=== PATIENT | male | born 1945 | race Caucasian/White ===

== ENCOUNTER 2016-07-14 10:50 | Inpatient (IN) | payer OTHER, MEDICAID ==
[~2016-07-14] VITALS: Ht 177.8 cm; Wt 88.0 kg
[2016-07-14] VITALS (11 sets, daily range): BP systolic 123–135; BP diastolic 56–92; PULSE 74–154; RESP 16–36; TEMP 96.4–98.4; O2SAT 89–95
--- NOTE | 2016-07-14 10:50 | NUR ---
Placed in room 5 . Placed on security monitor, blood pressure machine and pulse oximeter. To gown for exam. Side rails up.
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
[2016-07-14] MEDS ORDERED: NS 500 ML IV SCH (10:57)
[2016-07-14] MEDS ORDERED: methylPREDNISolone SOD SUCC 500 MG/VIAL (Solu-MEDROL) IV ONE (11:00)
[2016-07-14] MEDS ORDERED: cefTRIAXone 1 GM in D5W 50 ML IV ONE (11:00)
[2016-07-14] MEDS ORDERED: IPRATROPIUM/ALBUTEROL SULFATE 3 ML AMPUL.NEB INH ONE (11:00)
--- NOTE | 2016-07-14 11:00 | NUR ---
Per Dr. Hernandez we will try to control rate with aggresive hydration and relaxation techniques with pt as first line Tx.
[2016-07-14] MEDS ORDERED: IPRATROPIUM/ALBUTEROL SULFATE 3 ML AMPUL.NEB ONE (11:02)
[2016-07-14] MEDS ORDERED: cefTRIAXone 1 GM VIAL ONE (11:14)
[2016-07-14] MEDS ORDERED: KETOROLAC TROMETHAMINE 15 MG VIAL IVP ONE (11:15)
[2016-07-14] MEDS ORDERED: AMIODARONE HCL 150 MG/3ML VIAL ONE (11:19)
--- NOTE | 2016-07-14 11:20 | NUR ---
Discussed with Dr. Hernandez that pt is still very tachycardic 155 wide complex. Amiodaraone 150mg IVP over 10 min ordered.
[2016-07-14 11:21] LABS: ANION GAP 15 (5-15); CALCIUM 11.2 mg/dL (8.4-11.0); CHLORIDE 101 mmol/L (98-107); CREATININE 1.54 mg/dL (0.55-1.30); GLUCOSE 163 mg/dL (70-99); HEMATOCRIT 42.6 % (36-54); HEMOGLOBIN 14.1 g/dL (14.0-18.0); MEAN CORPUSCULAR HEMOGLOBIN 29 pg (27-31); MEAN CORPUSCULAR HGB CONC 33 % (32-36); MEAN CORPUSCULAR VOLUME 87 fL (79.0-98.0); PLATELET COUNT (AUTO) 327 K/uL (130-430); POTASSIUM 3.4 mmol/L (3.5-5.1); RED CELL DISTRIBUTION WIDTH 13.3 % (9.0-15.0); SODIUM SERUM 136 mmol/L (136-145); UREA NITROGEN, BLOOD 21 mg/dL (8-21); WHITE BLOOD COUNT (AUTO) 17.8 K/uL (4.8-10.8)
[2016-07-14 11:26] LABS: ALANINE AMINOTRANSFERASE 31 U/L (12-78); ALBUMIN 2.6 g/dL (3.4-4.8); ASPARTATE AMINOTRANSFERASE 68 U/L (10-37); TOTAL BILIRUBIN 0.7 mg/dL (0.0-1.0); TOTAL PROTEIN, SERUM 7.1 g/dL (6.4-8.3)
[2016-07-14] MEDS ORDERED: methylPREDNISolone SOD SUCC/PF 62.5 MG/ML VIAL IVP ONE (11:30)
[2016-07-14] MEDS ORDERED: AMIODARONE HCL 150 MG in D5W 100 ML IV ONE (11:30)
--- NOTE | 2016-07-14 11:42 | NUR ---
Patient states that he feels less SOB at this time. Still complaining of right posterior chest pain.
[2016-07-14 11:49] LABS: ATYPICAL LYMPHOCYTES % 0 % (0-0); BAND % (MANUAL) 0 % (0-6); BASOPHILS % (MANUAL) 0 % (0-2); EOSINOPHILS % (MANUAL) 0 % (0-7); LYMPHOCYTES % (MANUAL) 16 % (20-46); MONOCYTES % (MANUAL) 14 % (0-11)
--- NOTE | 2016-07-14 12:05 | NUR ---
received report from charge nurse sincere.
--- NOTE | 2016-07-14 12:06 | NUR ---
pt is awake,alert,mild resp distress. heart rate decreased to 94.
--- NOTE | 2016-07-14 12:11 | NUR ---
transported to CT scan via [facility]
--- NOTE | 2016-07-14 12:26 | NUR ---
returned back from ct scan.
[2016-07-14] MEDS ORDERED: POTA8TAB4 PO (12:34)
[2016-07-14] MEDS ORDERED: INSU100V8 SUBCUT ×2 (12:34)
[2016-07-14] MEDS ORDERED: HYDR25TA4 PO (12:34)
[2016-07-14] MEDS ORDERED: PLA200 PO (12:34)
[2016-07-14] MEDS ORDERED: ESCI20TA PO (12:34)
[2016-07-14] MEDS ORDERED: OMEP20CA10 PO (12:34)
[2016-07-14] MEDS ORDERED: LORA-258 PO (12:34)
[2016-07-14] MEDS ORDERED: LINA5TAB2 PO (12:34)
[2016-07-14] MEDS ORDERED: DIPH25CA83 PO (12:34)
[2016-07-14] MEDS ORDERED: VALS160T2 PO (12:34)
[2016-07-14] MEDS ORDERED: ATEN100T44 PO (12:34)
[2016-07-14] MEDS ORDERED: ASPI-1063 PO (12:34)
[2016-07-14] MEDS ORDERED: FOLI-43 PO (12:34)
[2016-07-14] MEDS ORDERED: ADAL40PE SQ (12:34)
--- NOTE | 2016-07-14 12:34 | NUR ---
Medication reconciliation completed with information provided by patient. Any prior medication reconciliation on file was reviewed and corrected.
[2016-07-14] MEDS ORDERED: VANCOMYCIN HCL 1,000 MG in NS 250 ML IV ONE (13:00)
[2016-07-14] MEDS ORDERED: LIDOCAINE 1%, 20 ML MDV 20 ML ONE (13:07)
[2016-07-14] MEDS ORDERED: LIDOCAINE 1% 10 MG/ML, 20 ML MDV INJ ONE (13:15)
--- NOTE | 2016-07-14 13:36 | NUR ---
Patient is at rest in bed. No distress at this time.
--- NOTE | 2016-07-14 13:54 | NUR ---
Patient given upper body chloxhexadine bath. Right chest scrubbed in luis a-operative manner.
[2016-07-14] MEDS ORDERED: ACETAMINOPHEN 325 MG TABLET PO PRN (14:00)
--- NOTE | 2016-07-14 14:02 | NUR ---
7fr chest tube placed to right chest 2nd intercostal space by Dr. Hernandez. Foam tape placed to help secure the flutter valve.
--- NOTE | 2016-07-14 14:12 | NUR ---
Chest tube to right chest. Flutter valve does not appear to be fluttering. Dr. Hernandez aware, awaiting chest X-ray.
[2016-07-14] MEDS ORDERED: POTASSIUM CHLORIDE 20 MEQ TAB.PRT.SR PO ONE (14:15)
[2016-07-14] MEDS ORDERED: NITROGLYCERIN 0.4 MG TAB.SUBL SL PRN (14:15)
[2016-07-14] MEDS ORDERED: VANCOMYCIN HCL 1000 MG/VIAL IV ONE (14:15)
--- NOTE | 2016-07-14 14:35 | NUR ---
Dr. Hernandez at bedside to replace chest tube due to non-adherance to chest wall and flutter valve not working.
--- NOTE | 2016-07-14 14:49 | NUR ---
There is a small amount of blood in the suction tubing. Dr. Hernandez notified. continue to monitor.
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
[2016-07-14] MEDS ORDERED: ETOMIDATE 20 MG/ 10 ML VIAL (AMIDATE) ONE (16:00)
[2016-07-14] MEDS ORDERED: PANCURONIUM BROMIDE 10 MG/10 ML VIAL (PAVULON) IV ONE (16:00)
[2016-07-14] MEDS: NACL 0.9% 1,000 ML IV SCH (16:30)
[2016-07-14] MEDS ORDERED: methylPREDNISolone SOD SUCC 40 MG/ML VIAL IVP ONE (16:30)
[2016-07-14] MEDS: MORPHINE 2 MG/ML INJ. SYRINGE IVP PRN ×2 (16:45→21:26)
[2016-07-14 16:49] LABS: ABG TOTAL HEMOGLOBIN 13.4 G/dL (12.0-18.0); BLOOD GAS COHb% 1.3 % (0.5-1.5); BLOOD GAS HHB 5.5 % (0.0-6.0); BLOOD GAS PH 7.424 (7.350-7.450)
--- NOTE | 2016-07-14 17:15 | NUR ---
Called Dr. Goldberg with a consult, spoke exchange. Dr Goldberg aware
--- NOTE | 2016-07-14 17:18 | NUR ---
Spoke with Dr. Cerda regarding ABG results.
--- NOTE | 2016-07-14 17:27 | NUR ---
Spoke with Dr. Cerda regarding ABG results.
[2016-07-14] MEDS: IPRATROPIUM/ALBUTEROL SULFATE 3 ML AMPUL.NEB INH SCH (18:00)
--- NOTE | 2016-07-14 18:00 | NUR ---
Pt states morphine was effective. SR with first degree block. O22L via nasal cannula. 2 units NovoLog given. Will continue to monitor.
[2016-07-14] MEDS: INSULIN ASPART 100 UNITS/ML, 10 ML VIAL (NovoLOG) SUBCUT PRN ×2 (18:17→21:48)
[2016-07-14] MEDS: PIPERACILLIN/TAZO 2.25G/DEX-IS 50 ML IV SCH (18:19)
[2016-07-14] MEDS: HYDROXYCHLOROQUINE SULFATE 200 MG TABLET PO SCH (21:24)
[2016-07-14] MEDS: methylPREDNISolone SOD SUCC 40 MG/ML VIAL IVP SCH (21:24)
[2016-07-14] MEDS: LACTOBACILLUS RHAMNOSUS GG 1 CAP CAPSULE PO SCH (21:27)
--- NOTE | 2016-07-14 21:36 | NUR ---
Pain C/o right rib area & back pain rated 9/10 described as throbbing pain. Morphine sulfate given as ordered.
--- NOTE | 2016-07-14 21:36 | NUR ---
Medication Due medications given as ordered. Tolerated po meds well.
[2016-07-14] MEDS: INSULIN GLULISINE SUBCUT SCH (21:47)
--- NOTE | 2016-07-14 21:53 | NUR ---
Blood sugar fingerstick checked = 237 mg/dL. No s/s of hypo/hyperglycemia. Scheduled 18 unit Apidra & 4 units Novolog insulin given for coverage.
[2016-07-15] VITALS (38 sets, daily range): BP systolic 73–167; BP diastolic 35–92; PULSE 50–189; RESP 12–60; TEMP 96.4–97.4; O2SAT 67–100; Ht 177.8 cm; Wt 88.0 kg
[2016-07-15] MEDS: PIPERACILLIN/TAZO 2.25G/DEX-IS 50 ML IV SCH ×4 (00:15→17:24)
--- NOTE | 2016-07-15 00:23 | NUR ---
Rounds Sleeping quietly, easily aroused. No c/o pain or discomfort. No shortness of breath. Call light within reach.
[2016-07-15 01:50] LABS: BASOPHILS # (AUTO) 0.1 K/uL (0.0-0.2); BASOPHILS % (AUTO) 1.3 % (0.0-2.0); HEMATOCRIT 37.4 % (36-54); HEMOGLOBIN 12.4 g/dL (14.0-18.0); LYMPHOCYTES # (AUTO) 0.3 K/uL (1.0-5.5); LYMPHOCYTES % (AUTO) 3.1 % (20.5-51.5); MEAN CORPUSCULAR HEMOGLOBIN 29 pg (27-31); MEAN CORPUSCULAR HGB CONC 33 % (32-36); MEAN CORPUSCULAR VOLUME 87 fL (79.0-98.0); MONOCYTES # (AUTO) 0.7 K/uL (0.0-1.0); MONOCYTES % (AUTO) 6.9 % (1.7-9.3); NEUTROPHILS # (AUTO) 9.7 K/uL (1.8-7.7); NEUTROPHILS % (AUTO) 88.7 % (40.0-70.0); PLATELET COUNT (AUTO) 197 K/uL (130-430); RED CELL DISTRIBUTION WIDTH 13.3 % (9.0-15.0); WHITE BLOOD COUNT (AUTO) 10.8 K/uL (4.8-10.8)
[2016-07-15 02:00] LABS: ANION GAP 8 (5-15); CALCIUM 10.3 mg/dL (8.4-11.0); CHLORIDE 105 mmol/L (98-107); CREATININE 1.45 mg/dL (0.55-1.30); GLUCOSE 114 mg/dL (70-99); POTASSIUM 4.2 mmol/L (3.5-5.1); SODIUM SERUM 137 mmol/L (136-145); UREA NITROGEN, BLOOD 24 mg/dL (8-21)
[2016-07-15] MEDS: methylPREDNISolone SOD SUCC 40 MG/ML VIAL IVP SCH ×3 (04:57→21:44)
[2016-07-15] MEDS ORDERED: DILTIAZEM HCL 25 MG/5 ML VIAL IVP ONE (05:00)
[2016-07-15] MEDS ORDERED: ETOMIDATE 20 MG/ 10 ML VIAL (AMIDATE) IVP ONE (05:00)
[2016-07-15] MEDS ORDERED: NACL 0.9% 1,000 ML IV ONE (05:00)
[2016-07-15] MEDS ORDERED: PANCURONIUM BROMIDE 10 MG/10 ML VIAL (PAVULON) IV ONE (05:00)
--- NOTE | 2016-07-15 05:00 | NUR ---
RESPIRATORY DISTRESS] has difficulty breathing, restless in bed. O2 sat mid 70's to 80's, hr 180's. RT called for breathing treatment.
[2016-07-15] MEDS ORDERED: DILTIAZEM HCL 25 MG/5 ML VIAL ONE (05:10)
--- NOTE | 2016-07-15 05:10 | NUR ---
md Dr. Velázquez in tang with orders given in preparation for intubation
--- NOTE | 2016-07-15 05:19 | NUR ---
intubation Dr. Velázquez intubated patient with 7.5 ett, 23 cm lipline. Patient on ambu bag.
[2016-07-15] MEDS ORDERED: PROPOFOL DRIP 100 ML IV ONE (05:31)
[2016-07-15] MEDS ORDERED: DILTIAZEM HCL 125 MG/25 ML VIAL IV ONE (05:44)
--- NOTE | 2016-07-15 05:45 | NUR ---
mechanical vent Intubated. On mechanical vent with settings TV 550, AC 18, Fio2 100 %.
[2016-07-15 05:59] LABS: ANION GAP 18 (5-15); CALCIUM 9.8 mg/dL (8.4-11.0); CHLORIDE 105 mmol/L (98-107); CREATININE 1.74 mg/dL (0.55-1.30); GLUCOSE 192 mg/dL (70-99); POTASSIUM 4.1 mmol/L (3.5-5.1); SODIUM SERUM 140 mmol/L (136-145); UREA NITROGEN, BLOOD 24 mg/dL (8-21)
[2016-07-15 06:06] LABS: INR 1.2 (0.80-1.20); PROTHROMBIN TIME 12.5 SECS (9.5-12.5)
[2016-07-15 06:12] LABS: BLOOD GAS PH 7.142 (7.350-7.450)
[2016-07-15 06:13] LABS: ABG TOTAL HEMOGLOBIN 13.6 G/dL (12.0-18.0); BLOOD GAS BASE EXCESS -14.2 mmol/L (-3.0-3.0)
[2016-07-15 06:14] LABS: BLOOD GAS COHb% 0.7 % (0.5-1.5); BLOOD GAS HHB 14.7 % (0.0-6.0); BLOOD O2Hb% 84.2 % (94.0-97.0)
[2016-07-15] MEDS ORDERED: DILTIAZEM HCL 125 MG in D5W 100 ML IV SCH ×2 (06:15→18:00)
[2016-07-15 06:28] LABS: ALANINE AMINOTRANSFERASE 26 U/L (12-78); ALBUMIN 2.1 g/dL (3.4-4.8); ASPARTATE AMINOTRANSFERASE 59 U/L (10-37); TOTAL BILIRUBIN 0.6 mg/dL (0.0-1.0); TOTAL PROTEIN, SERUM 5.9 g/dL (6.4-8.3)
[2016-07-15] MEDS ORDERED: SODIUM BICARBONATE 8.4% JECT 50 MEQ/50 ML SYRINGE IVP ONE (06:30)
--- NOTE | 2016-07-15 06:30 | NUR ---
Restraints Bilateral soft wrist restraints initiated as ordered by Dr. Velázquez for safety. Patient restless in bed.
[2016-07-15] MEDS ORDERED: SODIUM BICARBONATE 8.4% JECT 50 MEQ/50 ML SYRINGE ONE (06:37)
[2016-07-15] MEDS: INSULIN ASPART 100 UNITS/ML, 10 ML VIAL (NovoLOG) SUBCUT PRN ×4 (07:16→21:36)
--- NOTE | 2016-07-15 07:30 | NUR ---
Closing note In bed with periods of restlessness. Intubated on mechanical vent, tolerating current settings. Bilateral soft wrist restraints in place. Cardizem drip infusing to left hand @10 mg/hr, propofol infusing at 30 mcg/kg/min. Vitals bp 68/44, hr 73 bpm. Fall precautions in place. Will give report to oncoming shift RN.
--- NOTE | 2016-07-15 08:00 | NUR ---
NURSE: PT RECEIVED AT 0720, ON VENT, AC22, VT500, FIO2 100%, ETT SIZE 7.5 LEVEL24, ON CARDIZEM DRIP AT 10 MG/HR, SEDATED WITH PROPOFOL AT 30 MCG/KG/MIN, PT IS STILL RESTLESS, ON BILATERAL SOFT WRIST RESTRAINTS, ON NSR IN THE 80'S, BP IN THE LOW 90'S, PULSES ARE WEAK, PT LOOKS PALE, TO CONTINUE TO MONITOR CLOSELY.
[2016-07-15 08:36] LABS: ABG TOTAL HEMOGLOBIN 12.5 G/dL (12.0-18.0); BLOOD GAS BASE EXCESS -3.6 mmol/L (-3.0-3.0); BLOOD GAS HHB 1.5 % (0.0-6.0); BLOOD GAS PH 7.359 (7.350-7.450)
[2016-07-15] MEDS: NOREPINEPHRINE BITARTRATE 8 MG in D5W 242 ML IV PRN (08:39)
[2016-07-15] MEDS: CITALOPRAM HYDROBROMIDE 20 MG TABLET PO SCH (08:47)
[2016-07-15] MEDS: LACTOBACILLUS RHAMNOSUS GG 1 CAP CAPSULE PO SCH ×2 (08:48→21:00)
[2016-07-15] MEDS: VALSARTAN 160 MG TABLET (DIOVAN) PO SCH (08:48)
[2016-07-15] MEDS: ASPIRIN 81 MG TABLET(ECOTRIN) PO SCH (08:49)
[2016-07-15] MEDS: FOLIC ACID 1 MG TABLET PO SCH (08:49)
[2016-07-15] MEDS: OMEPRAZOLE 20 MG CAPSULE.DR (PriLOSEC) PO SCH (08:49)
[2016-07-15] MEDS: HYDROXYCHLOROQUINE SULFATE 200 MG TABLET PO SCH ×2 (08:49→21:00)
[2016-07-15] MEDS: ATENOLOL 50 MG TABLET (TENORMIN) PO SCH (08:50)
--- NOTE | 2016-07-15 09:18 | NUR ---
Nutrition Update Familia Scale 16 noted. Pt admitted for sepsis, possible pneumonia, pneumothorax, elevated TR. Diet: CCHO, soft BMI: 28.0 kg/m2 RD to follow per nutrition care standards.
--- NOTE | 2016-07-15 09:35 | NUR ---
NURSE: PT'S BP DROPPED TO THE 70'S AT AROUND 0800, TARAOPED TANYA TRUJILLO, CALLED DR WALKER, TOLD HER ABOUT THE PT SITUATION, DHE GAVE AND ORDER FOR NS 5OO ML BOLUS IV, SHE IF IT DOES NOT WORK TO STAT PT ON LEVOPHED DRIP, INSERT HARDIN. LEVOPHED HAS BEEN STARTED AROUND 0900 AT 10 MCG, BP WAS STILL LOW, HARDIN INSERTED WITHOUT DIFFICULTY, ABG WAS DONE, FIO2 WAS DROPPED TO 80% BY THE R.T. TO CONTINUE TO MONITOR CLOSELY.
[2016-07-15] MEDS: PROPOFOL DRIP 100 ML IV PRN ×3 (10:33→21:43)
--- NOTE | 2016-07-15 12:00 | NUR ---
NURSE: DR TRIMBLE AND DR WALKER CAME TO SEE THE PT.
[2016-07-15] MEDS ORDERED: ALBUMIN HUMAN 5% 500 ML IV ONE (13:00)
--- NOTE | 2016-07-15 13:30 | NUR ---
NURSE: VENT SETTINGS HAS BEEN CHANGED TO AC16, VT 550, FIO2 50%, P4 PER DR DAVILA.
[2016-07-15] MEDS: NACL 0.9% 1,000 ML IV SCH ×2 (15:50→15:52)
--- NOTE | 2016-07-15 16:00 | NUR ---
NURSE: DR PRESSLEY WAS HERE TO SEE THE PT, DR WRIGHT WAS ALSO HERE, HE SPOKE WITH THE PT'S DAUGHTER AT THE BEDSIDE.
[2016-07-15] MEDS: IPRATROPIUM/ALBUTEROL SULFATE 3 ML AMPUL.NEB INH SCH ×3 (18:17→18:20)
[2016-07-15] MEDS: INSULIN GLULISINE SUBCUT SCH (21:35)
--- NOTE | 2016-07-15 22:08 | NUR ---
BS/MEDS BS 177, 2UNITS NOVOLOG PER SLIDING SCALE GIVEN AND SCHED APIDRA GIVEN, NO HYPO/HYPERGLYCEMIA. PROPOFOL CONTINUED AT 35MCG/KG/MIN. PO MEDS HELD, DR. WALKER AWARE THAT PT HAS NO NGT/OGT, STATES THAT IT IS NOT NEEDED AT THIS TIME. DUE IV MED GIVEN, PT TOLERATING WELL. FAMILY QUESTIONS ANSWERED. POC DISCUSSED, FAMILY STATES UNDERSTANDING. CALL LIGHT W/IN REACH, SAFETY PRECAUTIONS IN PLACE, WILL CONTINUE TO MONITOR.
[2016-07-16] VITALS (32 sets, daily range): BP systolic 88–164; BP diastolic 42–97; PULSE 76–174; RESP 10–54; TEMP 96.5–98; O2SAT 75–100
--- NOTE | 2016-07-16 00:30 | NUR ---
ABX DUE ABX GIVEN, PT TOLERATING WELL, CALL LIGHT W/IN REACH, SAFETY PRECAUTIONS IN PLACE, WILL CONTINUE TO MONITOR.
[2016-07-16] MEDS: PIPERACILLIN/TAZO 2.25G/DEX-IS 50 ML IV SCH ×4 (00:40→18:00)
[2016-07-16] MEDS ORDERED: NOREPINEPHRINE 4 MG/4 ML VIAL IV ONE ×2 (01:33→01:41)
--- NOTE | 2016-07-16 02:00 | NUR ---
LEVOPHED LEVOPHED TITRATED DOWN TO 4MCG/MIN, PT TOLERATING WELL, WILL REASSESS. CALL LIGHT W/IN REACH, SAFETY PRECAUTIONS IN PLACE, WILL CONTINUE TO MONITOR.
[2016-07-16] MEDS: NOREPINEPHRINE BITARTRATE 8 MG in D5W 242 ML IV PRN (02:10)
[2016-07-16] MEDS: PROPOFOL DRIP 100 ML IV PRN ×5 (03:19→15:42)
[2016-07-16] MEDS: methylPREDNISolone SOD SUCC 40 MG/ML VIAL IVP SCH ×2 (06:12→20:54)
[2016-07-16] MEDS: NACL 0.9% 1,000 ML IV SCH (06:13)
--- NOTE | 2016-07-16 06:28 | NUR ---
BS/MED/ ABX BS 135, NO COVERAGE PER SLIDING SCALE GIVEN, NO HYPO/HYPERGLYCEMIA. DUE MED AND ABX GIVEN, PT TOLERATING WELL. CALL LIGHT W/IN REACH, SAFETY PRECAUTIONS IN PLACE, WILL CONTINUE TO MONITOR.
[2016-07-16 06:31] LABS: ANION GAP 11 (5-15); CALCIUM 9.6 mg/dL (8.4-11.0); CHLORIDE 113 mmol/L (98-107); CREATININE 1.11 mg/dL (0.55-1.30); GLUCOSE 145 mg/dL (70-99); POTASSIUM 3.7 mmol/L (3.5-5.1); SODIUM SERUM 147 mmol/L (136-145); UREA NITROGEN, BLOOD 29 mg/dL (8-21)
[2016-07-16 06:32] LABS: BASOPHILS # (AUTO) 0.3 K/uL (0.0-0.2); BASOPHILS % (AUTO) 1.9 % (0.0-2.0); HEMATOCRIT 34.5 % (36-54); HEMOGLOBIN 11.5 g/dL (14.0-18.0); LYMPHOCYTES # (AUTO) 0.4 K/uL (1.0-5.5); LYMPHOCYTES % (AUTO) 2.7 % (20.5-51.5); MEAN CORPUSCULAR HEMOGLOBIN 29 pg (27-31); MEAN CORPUSCULAR HGB CONC 33 % (32-36); MEAN CORPUSCULAR VOLUME 88 fL (79.0-98.0); MONOCYTES # (AUTO) 1.2 K/uL (0.0-1.0); MONOCYTES % (AUTO) 8.7 % (1.7-9.3); NEUTROPHILS # (AUTO) 11.6 K/uL (1.8-7.7); NEUTROPHILS % (AUTO) 86.7 % (40.0-70.0); PLATELET COUNT (AUTO) 182 K/uL (130-430); RED BLOOD CELL COUNT(AUTO) 3.94 MIL/uL (4.2-6.2); RED CELL DISTRIBUTION WIDTH 13.7 % (9.0-15.0); WHITE BLOOD COUNT (AUTO) 13.6 K/uL (4.8-10.8)
--- NOTE | 2016-07-16 07:23 | NUR ---
CLOSING ALL NEEDS MET. ENDORSED CARE TO DAY NURSE YUE VU, REPORT GIVEN AT BEDSIDE.
[2016-07-16 07:42] LABS: ABG TOTAL HEMOGLOBIN 12.7 G/dL (12.0-18.0); BLOOD GAS BASE EXCESS -2.3 mmol/L (-3.0-3.0); BLOOD GAS COHb% 0.3 % (0.5-1.5); BLOOD GAS HHB 3.1 % (0.0-6.0); BLOOD GAS PH 7.406 (7.350-7.450); BLOOD O2Hb% 96.4 % (94.0-97.0)
--- NOTE | 2016-07-16 07:50 | NUR ---
NOTES PT IN BED AWAKE, RESTLESS AND KEEPS MOVING. DIPRIVAN TITRATED AT 45MCG/KG. ON ET TUBE 25 CM LIP LINE, VENT SETTINGS AC 16, TV 500, FIO2 40%, peep 4. ON LEVOPHED AT 4MCG. NS AT 80CC.HR. HARDIN CATH DRAINING YELLOW URINE. HAS THORAVAX ON THE RT CHEST WITH OLD BLOOD NOTED. WILL MONITOR.
--- NOTE | 2016-07-16 08:10 | NUR ---
RESTRAINTS BILATERAL RESTRAINTS REMOVED.
--- NOTE | 2016-07-16 08:43 | NUR ---
PO MEDS PO MEDS HOLD. NO AVAILABLE ACCES TO GIVE MEDS AT THIS TIME.
[2016-07-16] MEDS: LACTOBACILLUS RHAMNOSUS GG 1 CAP CAPSULE PO SCH ×2 (09:00→20:54)
[2016-07-16] MEDS: HYDROXYCHLOROQUINE SULFATE 200 MG TABLET PO SCH ×2 (09:00→20:55)
[2016-07-16] MEDS: VALSARTAN 160 MG TABLET (DIOVAN) PO SCH (09:00)
[2016-07-16] MEDS: FOLIC ACID 1 MG TABLET PO SCH (09:00)
[2016-07-16] MEDS: OMEPRAZOLE 20 MG CAPSULE.DR (PriLOSEC) PO SCH (09:00)
[2016-07-16] MEDS: CITALOPRAM HYDROBROMIDE 20 MG TABLET PO SCH (09:00)
[2016-07-16] MEDS: ASPIRIN 81 MG TABLET(ECOTRIN) PO SCH (09:00)
[2016-07-16] MEDS: ATENOLOL 50 MG TABLET (TENORMIN) PO SCH (09:00)
[2016-07-16] MEDS: IPRATROPIUM/ALBUTEROL SULFATE 3 ML AMPUL.NEB INH SCH ×4 (09:27→19:59)
--- NOTE | 2016-07-16 10:00 | NUR ---
NOTES RESPONSE TO LIGHT GLABELLAR TAP. FAMILY AT BEDSIDE. TURNED AND REPOSITIONED. PER FAMILY PT FACE IS MORE PUFFY.
--- NOTE | 2016-07-16 10:30 | NUR ---
ROUNDS SEEN BY DR. DAVILA AT BEDSIDE. PER MD THE THORA VENT IS NOT WORKING. DR. PRESSLEY PAGED AND SPOKE TO DR. DAVILA FOR CHEST TUBE PLACEMENT.
--- NOTE | 2016-07-16 12:00 | NUR ---
BLOOD SUGAR 161. NO DISTRESS NOTED. WILL MONITOR.
--- NOTE | 2016-07-16 14:00 | NUR ---
chest tube DR. PRESSLEY HERE AND TALK TO THE FAMILY AT BEDSIDE. FAMILY REFUSED TO PUT CHEST TUBE. PT STATED (DAUGHTER) THAT THEY WANT HIM TO BE COMFORTABLE AND JUST PAIN FREE. FAMILY ALSO WANTS PT TO BE DNR. DR. DENISE ALEXANDER.
--- NOTE | 2016-07-16 14:00 | NUR ---
Dr. Goldberg on the unit evaluating the patient. He discussed with family/daughter regarding patients condition. Family agreed to make the patient a DNR. Dr. Jesenia roman. Waiting for orders.
[2016-07-16] MEDS: 0.45% NACL 1,000 ML IV SCH (14:56)
--- NOTE | 2016-07-16 15:15 | NUR ---
MD CALLED DR. WALKER CALLED BACK AND TALK TO THE FAMILY. ORDERED PT TO BE DNR AND CALLED DR. DAVILA FOR ORDER FOR TERMINALLY EXTUBATION.
[2016-07-16] MEDS ORDERED: MORPHINE PCA 50 mg/50 mL NS 50 ML IV PRN (16:00)
[2016-07-16] MEDS ORDERED: MORPHINE I.V. DRIP 100 ML IV PRN (16:00)
--- NOTE | 2016-07-16 16:30 | NUR ---
LEVOPHED AND DIPRIVAN DISCONTINUED AT THIS TIME.
--- NOTE | 2016-07-16 16:35 | NUR ---
MORPHINE DRIP MORPHINE DRIP STARTED AT THIS TIME.
[2016-07-16] MEDS: MORPHINE 2 MG/ML INJ. SYRINGE IVP PRN ×2 (16:48→20:33)
--- NOTE | 2016-07-16 16:52 | NUR ---
Patient extubated. RT at bedside. 2 RN's and house detective. Patient placed on 2 LPM O2 via NC. HR 180's. RR 30-40's. Dr. Ba made aware.
--- NOTE | 2016-07-16 17:00 | NUR ---
FAMILY REFUSED TO CHECK BLOOD SUGAR AND IV ANTIBIOTICS.
[2016-07-16] MEDS ORDERED: LORazepam 2 MG/ML VIAL IVP PRN ×2 (17:15→18:30)
[2016-07-16] MEDS ORDERED: LORazepam 2 MG/ML VIAL ONE ×3 (17:15→19:50)
--- NOTE | 2016-07-16 17:15 | NUR ---
PT IS RESTLESS AND AGITATED. BOLIVAR VU SPOKE TO DR. WALKER AND ORDERED ATIVAN.
--- NOTE | 2016-07-16 17:51 | NUR ---
1652 PT TERMINALLY EXTUBATED AND PLACED ON 3L NASAL CANNULA. FAMILY AT BEDSIDE. Addendum: 07/16/16 at 1753 by Benita Payne RT Amended: Links added.
--- NOTE | 2016-07-16 18:30 | NUR ---
Spoke with Dr. Ba. Updated on patients current condition including HR 180's. Reccommended cardizem and amiodarone. New order given to give Ativan every 1 hour. Will follow through.
--- NOTE | 2016-07-16 19:00 | NUR ---
NOTES PT IN BED STILL RESTLESS AND AGITATED. MORPHINE DRIP AT 1MG INFUSING WELL. ATIVAN GIVEN ORDERED.
--- NOTE | 2016-07-16 19:00 | NUR ---
ATIVAN ATIVAN GIVEN 1MG AT THIS TIME. NEW ORDER FOR ATIVAN 1MG Q1 HOUR NOT FOUND IN THE [facility] YET.
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
--- NOTE | 2016-07-16 19:30 | NUR ---
MORPHINE DRIP MORPHINE DRIP INCREASED 0.5MG/HR ORDERED. WILL CONTINUE TO MONITOR.
[2016-07-16] MEDS: D5W IV PRN (20:04)
[2016-07-16] MEDS: LORAZEPAM IV PRN (20:04)
--- NOTE | 2016-07-16 20:33 | NUR ---
ATIVAN DRIP, MORPHINE ATIVAN DRIP INITIATED, PT STILL AGITATED AND GRIMACING, MORPHINE GIVEN, PT TOLERATING WELL, WILL REASSESS SHORTLY. WILL CONTINUE TO MONITOR.
--- NOTE | 2016-07-16 20:42 | NUR ---
MORPHINE DRIP MORPHINE DRIP INCREASED 0.5MG/HR ORDERED. PT STILL MOANING AND YELLING OUT. WILL CONTINUE TO MONITOR.
--- NOTE | 2016-07-16 20:56 | NUR ---
SCHED MEDS REFUSED FAMILY REFUSED SCHED MEDS. WILL CONTINUE TO MONITOR.
[2016-07-17] VITALS (14 sets, daily range): BP systolic 87–107; BP diastolic 47–61; PULSE 80–113; RESP 6–17; TEMP 96–97; O2SAT 88–95
--- NOTE | 2016-07-17 | NUR ---
RESTRAINTS DC'D NO AGITATION OR REMOVING LINES OR DISRUPTING CARE. PT CALM AND RESTING. RESTRAINTS REMOVED. CALL LIGHT W/IN REACH, SAFETY PRECAUTIONS IN PLACE, WILL CONTINUE TO MONITOR.
[2016-07-17] MEDS ORDERED: LORazepam 2 MG/ML VIAL ONE (03:16)
[2016-07-17] MEDS: LORAZEPAM IV PRN ×2 (04:01→15:18)
[2016-07-17] MEDS: D5W IV PRN ×2 (04:01→15:18)
--- NOTE | 2016-07-17 04:06 | NUR ---
ATIVAN DRIP CONTINUING ATIVAN DRIP, PT TOLERATING WELL, WILL REASSESS SHORTLY. WILL CONTINUE TO MONITOR.
[2016-07-17] MEDS: PIPERACILLIN/TAZO 2.25G/DEX-IS 50 ML IV SCH ×3 (06:00→12:00)
[2016-07-17] MEDS: IPRATROPIUM/ALBUTEROL SULFATE 3 ML AMPUL.NEB INH SCH ×4 (06:00→19:10)
[2016-07-17] MEDS: MORPHINE PCA 50 mg/50 mL NS 50 ML IV PRN ×2 (06:36→16:25)
--- NOTE | 2016-07-17 06:36 | NUR ---
MORPHINE DRIP MORPHINE DRIP CONTINUED, PT TOLERATING WELL, WILL REASSESS SHORTLY. CALL LIGHT W/IN REACH, SAFETY PRECAUTIONS IN PLACE, WILL CONTINUE TO MONITOR.
[2016-07-17 07:03] LABS: BASOPHILS % (AUTO) 0.1 % (0.0-2.0); HEMATOCRIT 35.1 % (36-54); HEMOGLOBIN 11.7 g/dL (14.0-18.0); LYMPHOCYTES # (AUTO) 0.3 K/uL (1.0-5.5); LYMPHOCYTES % (AUTO) 2.6 % (20.5-51.5); MEAN CORPUSCULAR HEMOGLOBIN 30 pg (27-31); MEAN CORPUSCULAR HGB CONC 33 % (32-36); MEAN CORPUSCULAR VOLUME 89 fL (79.0-98.0); MONOCYTES % (AUTO) 8.6 % (1.7-9.3); NEUTROPHILS # (AUTO) 10.4 K/uL (1.8-7.7); NEUTROPHILS % (AUTO) 88.7 % (40.0-70.0); PLATELET COUNT (AUTO) 125 K/uL (130-430); RED BLOOD CELL COUNT(AUTO) 3.95 MIL/uL (4.2-6.2); RED CELL DISTRIBUTION WIDTH 13.8 % (9.0-15.0); WHITE BLOOD COUNT (AUTO) 11.7 K/uL (4.8-10.8)
--- NOTE | 2016-07-17 07:25 | NUR ---
CLOSING ALL NEEDS MET. ENDORSED CARE AT BEDSIDE TO NURSE LANIE VU.
--- NOTE | 2016-07-17 07:25 | NUR ---
OPENING NOTE RECEIVED REPORT FROM NIGHT NURSE, PATIENT IS RESTING COMFORTABLY WITH NO NOTED DISTRESS, DISCOMFORT OR SOB. PATIENT IS ON A MORPHINE AND ATIVAN DRIP AND TOLERATING WELL. PATIENT HAS HARDIN WITH CLEAR YELLOW URINE. RIGHT WRIST 22G WITH DOUBLE LUMEN THAT IS PATENT AND NO NOTED REDNESS, OR SWELLING. PATIENT IS SR ON THE MONITOR AND IS NOT COMPLAINING OF PAIN AT THIS TIME. PATIENT IS BEDREST. WILL CONTINUE TO MONITOR.
[2016-07-17 07:27] LABS: ANION GAP 7 (5-15); CALCIUM 9.6 mg/dL (8.4-11.0); CHLORIDE 113 mmol/L (98-107); CREATININE 1.38 mg/dL (0.55-1.30); GLUCOSE 162 mg/dL (70-99); SODIUM SERUM 145 mmol/L (136-145); UREA NITROGEN, BLOOD 39 mg/dL (8-21)
[2016-07-17] MEDS: ASPIRIN 81 MG TABLET(ECOTRIN) PO SCH (08:49)
[2016-07-17] MEDS: LACTOBACILLUS RHAMNOSUS GG 1 CAP CAPSULE PO SCH (08:49)
[2016-07-17] MEDS: CITALOPRAM HYDROBROMIDE 20 MG TABLET PO SCH (08:49)
[2016-07-17] MEDS: FOLIC ACID 1 MG TABLET PO SCH (08:49)
[2016-07-17] MEDS: VALSARTAN 160 MG TABLET (DIOVAN) PO SCH (08:49)
[2016-07-17] MEDS: HYDROXYCHLOROQUINE SULFATE 200 MG TABLET PO SCH (08:49)
[2016-07-17] MEDS: methylPREDNISolone SOD SUCC 40 MG/ML VIAL IVP SCH (08:49)
[2016-07-17] MEDS: OMEPRAZOLE 20 MG CAPSULE.DR (PriLOSEC) PO SCH (08:50)
[2016-07-17] MEDS: ATENOLOL 50 MG TABLET (TENORMIN) PO SCH (08:50)
--- NOTE | 2016-07-17 08:53 | NUR ---
NOTE PATIENT'S DAUGHTER IS AT BEDSIDE AND SHE STATED THAT SHE DID NOT WANT ANY MEDICATION GIVEN TOT HE PATIENT EXCEPT THE MORPHINE AND ATIVAN DRIP AND THE IV HYDRATION. SHE IS AWARE THAT THE PATIENT NEEDS MEDICATIONS BUT DOES NOT WANT TO BOTHER THE PATIENT. WILL CONTINUE TO MONITOR.
--- NOTE | 2016-07-17 10:30 | NUR ---
transfer notes rec patient from icu accompanied by family. pt is non responsive with o2 at 2 liters via nasal cannula. ivf of morphine and ativan in progress. no infiltration noted. pt is comfortable, vital sign this time is stable. bed in low position and side rails up and locked.
--- NOTE | 2016-07-17 10:35 | NUR ---
TRANSFER SPOKE TO DR WALKER AND RECEIVED AN ORDER TO TRANSFER TO TELEMETRY. HARMAN THE DAUGHTER WAS CALLED AND I LEFT A MESSAGE FOR HER TO CALL BACK, THE NIECE IS AT BEDSIDE AND SHE TEXT HARMAN WHAT WAS GOING ON. REPORT FOR GIVEN TO RACIEL VU AND THE PATIENT WAS TAKEN TO ROOM 107A IN STABLE CONDITION WITH NO NOTED DISTRESS, DISCOMFORT OR SOB.
[2016-07-17] MEDS: 0.45% NACL 1,000 ML IV SCH (10:37)
--- NOTE | 2016-07-17 11:50 | NUR ---
rounds pt's family refused accucheck and ivpb abx to be infused. resting comfortably.
--- NOTE | 2016-07-17 12:48 | NUR ---
Social Service Note: Pt's nurse alerted COFFEE TASTER that there is an order for hospice evaluation. COFFEE TASTER met with pt's family at bedside; COFFEE TASTER discussed the order for hospice evaluation. Pt's family stated that they would like information on hospice and would wait for pt's dtr to arrive. COFFEE TASTER provide pt's family with brochures on [facility], [facility], and [facility] hospice; COFFEE TASTER will follow up with pt's family to see which agency they would like to come out for the evaluation. Addendum: 07/17/16 at 1522 by Chanelle Broussard LCSW COFFEE TASTER met with pt's dtr, Ron at bedside; Ron states that she is reviewing the hospice brochures. Ron states that she is familiar with [facility]; Ron asked if she could make a call to [facility] and see if pt could be followed under their care. [facility] will follow up with pt's dtr once she has made a decision about which hospice company she would like to use. Addendum: 07/17/16 at 1557 by Chanelle Broussard LCSW CHRISTIAN received a call from Linda at [facility] ([phone] [phone]) and states that if pt makes it through the night they will transfer pt to [facility] under their hospice care. CHRISTIAN has faxed hospice evaluation order and pt's information to [facility] for review. CHRISTIAN will remain available for support and will follow up as needed.
--- NOTE | 2016-07-17 14:03 | NUR ---
rounds dr leija here and talked to family re hospice order. pt is comfortable.
--- NOTE | 2016-07-17 15:35 | NUR ---
rounds pt's saturation dropped to 76% , family aware and daughter requesting for a yazdanism exterior interior specialist. turned and repositioned for comfort.
--- NOTE | 2016-07-17 17:30 | NUR ---
rounds stable, no acute distress noted. morphine and ativan drip in progress. resting comfortable and family at bedside.
--- NOTE | 2016-07-17 18:37 | NUR ---
closing notes pt sleeping soundly otherwise still response to painful stimuli when turned and repositioned. vital signs as follows bp 106/54, 96.6. hr 85 95%. morphine and ativan drip on progress. family at bedside with the patient.
--- NOTE | 2016-07-17 19:45 | NUR ---
ROUNDS RECEIVED PATIENT IN BED, ON MORPHINE DRIP AT 5 MG/HR, ATIVAN DRIP AT 10 ML/HR, IVF OF 1/2 NS AT 50 ML/HR, AROUSABLE TO DEEP PAIN ONLY. PATIENT IS FOR COMFORT MEASURES ONLY. FAMILY MEMBERS AT THE BEDSIDE. NEEDS ATTENDED TO. PATIENT REPOSITIONED AND MADE COMFORTABLE. WILL CONTINUE TO MONITOR.
--- NOTE | 2016-07-17 21:30 | NUR ---
ROUNDS PATIENT STABLE, FAMILY MEMBERS AT THE BEDSIDE, WILL CONTINUE TO MONITOR.
[2016-07-18] VITALS: BP 103/50; PULSE 87; RESP 18; TEMP 97.6; O2SAT 93
--- NOTE | 2016-07-18 | NUR ---
PATIENT RESTING: Patient resting quietly. No acute distress noted. Vital signs within normal range.
--- NOTE | 2016-07-18 02:15 | NUR ---
ROUNDS PATIENT ASLEEP, VITALS UNSTABLE, NO SIGNS OF ANY PAIN AND DISCOMFORT NOTED. WILL CONTINUE TO MONITOR.
[2016-07-18] MEDS: MORPHINE PCA 50 mg/50 mL NS 50 ML IV PRN ×2 (03:23→12:45)
--- NOTE | 2016-07-18 04:00 | NUR ---
PATIENT RESTING: Patient resting quietly. No acute distress noted. Vital signs within normal range.
[2016-07-18 04:33] VITALS: BP 87/60; PULSE 140; RESP 19; TEMP 97.2; O2SAT 87
[2016-07-18] MEDS: IPRATROPIUM/ALBUTEROL SULFATE 3 ML AMPUL.NEB INH SCH ×3 (06:00→12:00)
--- NOTE | 2016-07-18 06:50 | NUR ---
CLOSING NOTES PATIENT STILL WITH IRREGULAR VITALS AT THIS TIME, NO PAIN AND DISCOMFORT NOTED. ALL NEEDS ATTENDED TO. WILL ENDORSE TO INCOMING SHIFT NURSE.
[2016-07-18 08:00] VITALS: BP 122/53; PULSE 108; RESP 14; TEMP 97.6; O2SAT 92
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
[2016-07-18] MEDS: 0.45% NACL 1,000 ML IV SCH (08:20)
[2016-07-18] MEDS: methylPREDNISolone SOD SUCC 40 MG/ML VIAL IVP SCH (08:21)
[2016-07-18] MEDS: CITALOPRAM HYDROBROMIDE 20 MG TABLET PO SCH (08:22)
[2016-07-18] MEDS: HYDROXYCHLOROQUINE SULFATE 200 MG TABLET PO SCH (08:22)
[2016-07-18] MEDS: LACTOBACILLUS RHAMNOSUS GG 1 CAP CAPSULE PO SCH (08:22)
[2016-07-18] MEDS: OMEPRAZOLE 20 MG CAPSULE.DR (PriLOSEC) PO SCH (08:23)
[2016-07-18] MEDS: ATENOLOL 50 MG TABLET (TENORMIN) PO SCH (08:23)
[2016-07-18] MEDS: FOLIC ACID 1 MG TABLET PO SCH (08:23)
[2016-07-18] MEDS: ASPIRIN 81 MG TABLET(ECOTRIN) PO SCH (08:23)
[2016-07-18] MEDS: VALSARTAN 160 MG TABLET (DIOVAN) PO SCH (08:23)
--- NOTE | 2016-07-18 10:00 | NUR ---
ROUNDS PATIENT ASLEEP IN BED WITH OCCASIONAL APNEIC EVENTS, LIKELY DIANE STROKES BREATHING PATTERN. PATIENT STILL UNAROUSABLE, MD AWARE- COMFORT MEASURES ONLY. ALL SAFETY MEASURES REMAIN IN PLACE. PATIENT WILL VARY FROM ST TO SVT TO SR ON TELE. WILL CONTINUE TO MONITOR.
--- NOTE | 2016-07-18 10:58 | NUR ---
Social Service Note: POTATO PANCAKE FRIER received a call from Radha at [facility] ([phone]); Radha states that pt's dtr, Ron, is on her way to the hospital and [facility] is securing a bed for pt at [facility]; Radha states that the evaluation will be done at [facility]; [facility] will call POTATO PANCAKE FRIER once they have spoken to dtr and transportation has been arranged. CHRISTIAN has updated pt's nurse that pt will be going to [facility] today under hospice care and to alert physician that a DC order is needed.
[2016-07-18] MEDS: PIPERACILLIN/TAZO 2.25G/DEX-IS 50 ML IV SCH (11:30)
[2016-07-18 11:36] VITALS: BP 101/67; PULSE 102; RESP 16; TEMP 97.6; O2SAT 90
[2016-07-18] MEDS: LORAZEPAM IV PRN (11:49)
[2016-07-18] MEDS: D5W IV PRN (11:49)
--- NOTE | 2016-07-18 12:00 | NUR ---
ROUNDS PATIENT ASLEEP IN BED WITH OCCASIONAL APNEIC EVENTS, LIKELY DIANE STROKES BREATHING PATTERN. PATIENT STILL UNAROUSABLE, MD AWARE- COMFORT MEASURES ONLY. DCP TO [facility] ON HOSPICE CARE, WAITING FOR HOSPICE EVALUATION; POSSIBLE D/C TODAY. ALL SAFETY MEASURES REMAIN IN PLACE. PATIENT WILL VARY FROM ST TO SVT TO SR ON TELE. WILL CONTINUE TO MONITOR.
--- NOTE | 2016-07-18 14:00 | NUR ---
ROUNDS PATIENT TO TRANSFER TO [facility]. IV TO BE DISCONTINUED JUST PRIOR TO TRANSPORT, HARDIN TO REMAIN IN PLACE. HOSPICE NURSES PROVIDED PATIENT CARE PER FAMILY REQUEST. PATIENT CONTINUES TO HAVE APNEIC EVENTS FOR 5-8 SECONDS IN DURATION; FAMILY AWARE. MEDIC 1 TO COLLATERAL ANALYST PATIENT AT 1630. PATIENT CONTINUES TO HAVE MORPHINE AND ATIVAN INFUSING. ALL SAFETY MEASURES REMAIN IN PLACE. WILL CONTINUE TO MONITOR.
[2016-07-18 14:34] VITALS: BP 100/58; PULSE 174; RESP 12; TEMP 97.6; O2SAT 83
[2016-07-18 15:31] VITALS: BP 100/58; PULSE 144; RESP 18; TEMP 97; O2SAT 96
[2016-07-18] MEDS ORDERED: LORazepam 2 MG/ML VIAL IVP ONE (16:00)
[2016-07-18] MEDS ORDERED: MORPHINE 2 MG/ML INJ. SYRINGE IVP ONE (16:00)
--- NOTE | 2016-07-18 16:00 | NUR ---
ROUNDS PATIENT CHANGED INTO TRANSPORT CLOTHES, RESPIRATIONS ARE BECOMING LESS FREQUENT WITH SEVERAL APNEIC EVENTS, PULSE OX AT 72-76% ON 2L NC. FAMILY AT BEDSIDE WITH PATIENT WHO CONTINUES TO HAVE MORPHINE AND ATIVAN CONTINUOUSLY DRIPPING. PATIENT IS UNRESPONSIVE TO STIMULI. PATIENT TO BE TRANSFERRED TO [facility] AT 1630 BY MEDIC 1 WITH MEDICATION BOLUS FOR TRANSPORT PER MD ORDER. ALL SAFETY MEASURES REMAIN IN PLACE. WILL CONTINUE TO MONITOR.
--- NOTE | 2016-07-18 17:57 | NUR ---
PT TRANSFERRED [facility]. Transfer packet with Transfer Orders and Medication Reconciliation form given to EMT with report. Exitcare provided. [facility] ID band removed, replaced with ID band with pt's name and . IV catheter removed, intact and dressing applied, no active bleeding. Malcolm catheter left in place for transport. All belongings sent with patient. Patient left floor via gurney escorted by EMT in no distress.
== END 2016-07-18 17:57 | disposition hospice, inpatient (51) | DRG 871 ==
LOC: SED 10:50 → EDBD 10:50 → SIC 12:55 → SMU 07-17 10:25 → STU 07-17 10:25
PROVIDERS: ADMIT Internal Medicine; ATTEND Internal Medicine
PROC: 0W9930Z Drainage of Right Pleural Cavity with Drainage Device, Percutaneous Approach (ICD-10-PCS; 2016-07-14)
PROC: 5A1945Z Respiratory Ventilation, 24-96 Consecutive Hours (ICD-10-PCS; principal; 2016-07-15)
PROC: 0BH17EZ Insertion of Endotracheal Airway into Trachea, Via Natural or Artificial Opening (ICD-10-PCS; 2016-07-15)
DX: A41.9 Sepsis, unspecified organism (principal); E43 Unspecified severe protein-calorie malnutrition; J96.00 Acute respiratory failure, unspecified whether with hypoxia or hypercapnia; J69.0 Pneumonitis due to inhalation of food and vomit; S27.0XXA Traumatic pneumothorax, initial encounter; N17.9 Acute kidney failure, unspecified; J44.0 Chronic obstructive pulmonary disease with (acute) lower respiratory infection; S22.41XA Multiple fractures of ribs, right side, initial encounter for closed fracture; J98.11 Atelectasis; C78.00 Secondary malignant neoplasm of unspecified lung; C79.51 Secondary malignant neoplasm of bone; Z99.11 Dependence on respirator [ventilator] status; I50.9 Heart failure, unspecified; I25.10 Atherosclerotic heart disease of native coronary artery without angina pectoris; E78.5 Hyperlipidemia, unspecified; E11.9 Type 2 diabetes mellitus without complications; M06.9 Rheumatoid arthritis, unspecified; R54 Age-related physical debility; F17.210 Nicotine dependence, cigarettes, uncomplicated; E66.9 Obesity, unspecified; E83.52 Hypercalcemia; B18.2 Chronic viral hepatitis C; E87.6 Hypokalemia; I11.0 Hypertensive heart disease with heart failure; Z85.46 Personal history of malignant neoplasm of prostate; I25.2 Old myocardial infarction; Z79.899 Other long term (current) drug therapy; Z68.27 Body mass index [BMI] 27.0-27.9, adult; V89.2XXA Person injured in unspecified motor-vehicle accident, traffic, initial encounter; Z82.49 Family history of ischemic heart disease and other diseases of the circulatory system; Z95.1 Presence of aortocoronary bypass graft
CPT/HCPCS: 32556; 36415; 36600; 71010; 71250-TC; 76770; 80048; 80053; 82803-TC; 82962; 83605; 83880; 84443-TC; 84484; 85007; 85025; 85027; 85610-TC; 85730-TC; 87040-TC; 87070-TC; 87081; 87086; 87205-TC; 93005; 93306; 94002; 94003; 94640; 94760; 96365; 96374; 96375; 99291; J0282; J0696; J1030; J1815; J1885; J1956; J2001; J2060; J2270; J2543; J2704; J2930; J3370; J3490; J7030; J7040; J7050; J7060; P9041